=== PATIENT | female | born 1975 | race Caucasian/White ===

== ENCOUNTER 2022-08-04 12:29 | Emergency (ER) | payer OTHER ==
[~2022-08-04] VITALS: Ht 165.1 cm; Wt 91.6 kg
[2022-08-04] MEDS ORDERED: ZESTRIL10 MG PO (15:39)
== END 2022-08-04 15:48 | disposition home or self-care (01) ==
LOC: ED 12:29
DX: R51.9 Headache, unspecified (principal); R03.0 Elevated blood-pressure reading, without diagnosis of hypertension
CPT/HCPCS: 36415; 80053; 84443; 85025; 99284; A9270